=== PATIENT | male | born 1990 | race Caucasian/White ===

== ENCOUNTER 2016-08-01 14:21 | Emergency (ER) | payer MEDICAID, OTHER ==
[~2016-08-01] VITALS: Ht 198.1 cm; Wt 150.0 kg
[2016-08-01 14:32] VITALS: Ht 198.1 cm; Wt 150.0 kg
[2016-08-01] MEDS ORDERED: HYDROCODONE/APAP (10/325) TAB PO ONE (16:00)
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
--- NOTE | 2016-08-01 16:38 | RADRPT ---
PROCEDURE: Lumbar spine series CLINICAL INDICATION: Back pain TECHNIQUE: Three views of the lumbar spine are available for review COMPARISON: None available FINDINGS: The normal lumbar lordosis is preserved. Alignment is intact. No acute fracture or dislocation is s een. There is an age indeterminate vertebral body height loss of L3. The remainder of vertebral bod y heights are well maintained . Paraspinous soft tissues are grossly unremarkable. IMPRESSION: 1. Age indeterminate vertebral body height loss of L3. If there is clinical concern for acute frac ture, recommend CT or MRI of the lumbar spine. 2. Otherwise unremarkable lumbar spine series. RPTAT: KK .Ori Smith MD, MD Date Time Electronically viewed and signed by .Ori Smith MD, on 08/01/2016 16:38 .B/
--- NOTE | 2016-08-01 16:39 | RADRPT ---
PROCEDURE: Thoracic Spine. CLINICAL INDICATION: Back pain TECHNIQUE: 5 views of the thoracic spine are available for review COMPARISON: None available FINDINGS: The upper thoracic spine is not well visualized on the lateral view. The normal thoracic kyphosis is well maintained. Alignment is intact. There is no evidence of acute fracture or dislocation. Vertebral body heights are well maintained. Intervertebral disk heights are well maintained. The s oft tissues are within normal limits. IMPRESSION: 1. Unremarkable thoracic spine x-rays series. RPTAT: KK .Ori Smith MD, MD Date Time Electronically viewed and signed by .Ori Smith MD, MD on 08/01/2016 16:39 .B/
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
[2016-08-01] MEDS ORDERED: IBUP-1542 PO (17:35)
[2016-08-01] MEDS ORDERED: BACL10TA PO (17:36)
[2016-08-01] MEDS ORDERED: HYDR-902 PO (17:36)
[2016-08-01 18:10] VITALS: BP 133/71; PULSE 79; RESP 18; TEMP 97.8
== END 2016-08-01 18:11 | disposition home or self-care (01) ==
LOC: FTE 14:21
DX: S09.90XA Unspecified injury of head, initial encounter (principal); S39.92XA Unspecified injury of lower back, initial encounter; F17.210 Nicotine dependence, cigarettes, uncomplicated; R51 Headache; V49.49XA Driver injured in collision with other motor vehicles in traffic accident, initial encounter
CPT/HCPCS: 70450; 72072; 72100; 73110; Z7502; Z7610